=== PATIENT | female | born 1945 | race Asian ===

== ENCOUNTER → 2016-04-22 | Outpatient (CLI) | payer OTHER, MEDICAID ==
--- NOTE | 2016-04-22 22:03 | DX ---
DEXA Bone Mineral Densitometry Indication: 70-year-old postmenopausal woman with personal history of back pain. Baseline. Technique: Bone Mineral Densitometry (BMD) by Dual Energy X-Ray Absorptiometry (DEXA) was performed utilizing the [email or web address] scanner. The lumbar spine was evaluated in the AP projection. The bilat eral hips and left forearm were evaluated in the AP projection. Vertebral fracture assessment was al so performed. Comparison: None. AP Lumbar Spine: The L1, L2, L3, and L4 vertebral bodies were evaluated. BMD: 0.838 gm/cm2. T-score: -2.9 SD. Z-score: -0.9 SD. AP Left Hip: Neck. BMD: 0.628 gm/cm2. T-score: -2.9 SD. Z-score: -1.1 SD. AP Right Hip: Neck BMD: 0.588 gm/cm2. T-score: -3.2 SD. Z-score: -1.4 SD. AP Left Forearm, 03/15: BMD: 0.656 gm/cm2. T-score: -2.5 SD. Z-score: -0.7 SD. Vertebral Fracture Assessment: No significant fracture deformity. No prevertebral aortic calcificat ion, significant marginal bone spurring, facet arthrosis, or intrinsic vertebral body sclerosis that would affect the accuracy of the lumbar spine BMD measurement. Conclusion: Considering the lowest measured site (right hip), the patient is osteoporotic, with a T -score of -3.2. The ten year risk for any major osteoporotic fracture is 20.6% and for a hip fractur e is 7.5%. Any bone loss in this patient is probably related to aging or estrogen deficiency. Recommendations 1. If not recently assessed, recommend excluding common secondary causes of bone loss. Laboratory e valuation might include CBC, TSH, calcium, phosphorous, albumin, creatinine, alkaline phosphatase, PT H, serum, electrophoresis (SPEP or UPEP), antitissue transglutaminase antibody levels (celiac disease ), and hydroxy vitamin D3, as well as a 24-hour urine calcium. , recommend excluding secondary metabo lic causes of bone loss (reported to be present in as many as 30% of patients with normal Z scores). Laboratory evaluation might include hydroxy vitamin D3 level, TSH, PTH, calcium, 24-hour urine calci um, phosphorous, albumin, creatinine, alkaline phosphatase, serum electrophoresis (SPEP or UPEP), an titissue transglutaminase antibody levels (celiac disease) and CBC. If secondary causes are exclude d, then consider initiating treatment with a bisphosphonate (such as Fosamax, Actonel or Boniva). If the patient is unable to use an oral bisphosphonate, another agent such as IV bisphosphonates (Boniv a or Reclast), teriparatide (Forteo), or a selective estrogen receptor modulator (Evista) might be co nsidered. 2. Supplementing an insufficient diet to achieve total intakes of 1500 mg calcium and 800 Internatio nal Units of vitamin D daily should be considered. 3. Osteoporosis prevention and treatment begin by modifying risk factors. The patient should be enc ouraged to participate in a regular exercise program that includes weightbearing and muscle-strengthe mayank regimens, as is clinically appropriate. 4. Recommend follow-up DEXA in one year to assess the efficacy of pharmacologic intervention and/or correction of appropriate secondary cause.
== END ==
LOC: FIMAGING 10:57
PROVIDERS: ATTEND Family Medicine
DX: M81.0 Age-related osteoporosis without current pathological fracture (principal)

== ENCOUNTER → 2016-08-25 | Outpatient (CLI) | payer OTHER, MEDICAID | LOC: BHFA 11:00 | PROVIDERS: ATTEND Internal Medicine Cardiovascular Disease | DX: R00.2 Palpitations (principal) ==

== ENCOUNTER → 2016-08-31 | Outpatient (CLI) | payer OTHER, MEDICAID | LOC: BRMIMAGING 13:15 | PROVIDERS: ATTEND Family Medicine | DX: Z12.31 Encounter for screening mammogram for malignant neoplasm of breast (principal) | CPT/HCPCS: G0202 ==

== ENCOUNTER → 2017-09-26 | Outpatient (CLI) | payer OTHER, MEDICAID | LOC: BRMIMAGING 11:05 | PROVIDERS: ATTEND Family Medicine | DX: Z12.31 Encounter for screening mammogram for malignant neoplasm of breast (principal) ==